=== PATIENT | male | born 1975 | race Two or more races ===

== ENCOUNTER 2018-08-12 10:52 | Inpatient (IN) | payer OTHER ==
[2018-08-12 11:25] LABS: ADD MAN DIFF? NO
[2018-08-12] MEDS: SOD CHLORIDE 0.9% 1,000 ML IV ×2 (11:27→17:59)
[2018-08-12] MEDS: DILTIAZEM 25 MG INJ IV (11:27)
[2018-08-12 11:28] LABS: WHITE BLOOD COUNT 5.8 10^3/ul (4.8-10.8)
[2018-08-12 11:28] LABS: BASOPHILS % 0.3 % (0.0-2.0); EOSINOPHILS # 0.1 10^3/ul (0.0-0.5); EOSINOPHILS % 1.9 % (0.0-7.0); HEMATOCRIT 42.2 % (42.0-52.0); HEMOGLOBIN 14.5 g/dl (14.0-18.0); LYMPHOCYTES # 1.9 10^3/ul (0.8-2.9); LYMPHOCYTES % 33.1 % (15.0-51.0); MEAN CORPUSCULAR HGB CONC 34.4 g/dl (32.0-37.0); MEAN CORPUSCULAR VOLUME 84.4 fl (82.0-101.0); MEAN PLATELET VOLUME 10.9 fl (7.4-10.4); MONOCYTE # 0.5 10^3/ul (0.3-0.9); MONOCYTES % 8.4 % (0.0-11.0); NEUTROPHIL # 3.2 10^3/ul (1.6-7.5); PLATELET COUNT 203 10^3/UL (140-415); RED CELL DISTRIBUTION WIDTH 13.1 % (11.5-14.5)
[2018-08-12 11:47] LABS: INR 1.03; PROTIME 13.6 Sec (11.9-14.9); PT RATIO 1.1
[2018-08-12 11:48] LABS: PARTIAL THROMBOPLASTIN TIME 25.8 Sec (23.0-35.0)
[2018-08-12 11:56] LABS: ANION GAP 14 (5-13); BLOOD UREA NITROGEN 25 mg/dl (7-20); CALCIUM 9.5 mg/dl (8.4-10.2); CARBON DIOXIDE 18 mmol/L (21-31); CHLORIDE 107 mmol/L (97-110); CREATININE 1.26 mg/dl (0.61-1.24); Estimated GFR > 60 mL/min (>60); GLUCOSE 193 mg/dl (70-220); POTASSIUM 3.9 mmol/L (3.5-5.1); SODIUM 139 mmol/L (135-144)
[2018-08-12 12:08] LABS: TROPONIN-I < 0.012 ng/ml (0.000-0.120)
[2018-08-12] MEDS: ENOXAPARIN 100 MG/ML SYG SC (12:52)
[2018-08-12] MEDS ORDERED: ONDANSETRON 4 MG INJ IV (16:00)
[2018-08-12] MEDS ORDERED: ACETAMINOPHEN 325 MG TAB PO (16:00)
[2018-08-12] MEDS ORDERED: NACL 0.9% 3 ML SYG IV (16:00)
[2018-08-12] MEDS ORDERED: HYDROCODONE/APAP (5/325) TAB PO (16:00)
[2018-08-12] MEDS ORDERED: morphine SULFATE/PF (2 MG/2 ML) SYG IV (16:00)
[2018-08-12] MEDS ORDERED: ZOLPIDEM 5 MG TAB PO (16:00)
[2018-08-12] MEDS ORDERED: DOCUSATE SODIUM 100 MG CAP PO (16:00)
[2018-08-12] MEDS: DILTIAZEM-D5W 125MG/125ML DRIP 125 ML IV (16:48)
[2018-08-13] MEDS: SOD CHLORIDE 0.9% 1,000 ML IV ×2 (01:45→11:45)
[2018-08-13] MEDS: DILTIAZEM-D5W 125MG/125ML DRIP 125 ML IV ×3 (03:30→19:36)
[2018-08-13 06:12] LABS: ADD MAN DIFF? NO
[2018-08-13 06:17] LABS: BASOPHILS % 0.4 % (0.0-2.0); EOSINOPHILS # 0.1 10^3/ul (0.0-0.5); EOSINOPHILS % 1.3 % (0.0-7.0); HEMATOCRIT 40.3 % (42.0-52.0); HEMOGLOBIN 13.5 g/dl (14.0-18.0); LYMPHOCYTES # 1.7 10^3/ul (0.8-2.9); LYMPHOCYTES % 21.8 % (15.0-51.0); MEAN CORPUSCULAR HEMOGLOBIN 29.2 pg (29.0-33.0); MEAN CORPUSCULAR HGB CONC 33.5 g/dl (32.0-37.0); MEAN CORPUSCULAR VOLUME 87.2 fl (82.0-101.0); MONOCYTE # 0.7 10^3/ul (0.3-0.9); MONOCYTES % 9.3 % (0.0-11.0); NEUTROPHIL # 5.1 10^3/ul (1.6-7.5); NEUTROPHILS % 66.9 % (39.0-77.0); PLATELET COUNT 210 10^3/UL (140-415); RED BLOOD COUNT 4.62 10^6/ul (4.70-6.10); RED CELL DISTRIBUTION WIDTH 13.2 % (11.5-14.5)
[2018-08-13 06:17] LABS: WHITE BLOOD COUNT 7.6 10^3/ul (4.8-10.8)
[2018-08-13 06:32] LABS: HEMOGLOBIN A1C 5.3 % (0-5.9)
[2018-08-13 06:46] LABS: ANION GAP 12 (5-13); BLOOD UREA NITROGEN 18 mg/dl (7-20); CALCIUM 9.1 mg/dl (8.4-10.2); CARBON DIOXIDE 20 mmol/L (21-31); CHLORIDE 105 mmol/L (97-110); CREATININE 1.05 mg/dl (0.61-1.24); Estimated GFR > 60 mL/min (>60); GLUCOSE 91 mg/dl (70-220); MAGNESIUM 1.8 mg/dl (1.7-2.5); PHOSPHORUS 3.7 mg/dl (2.5-4.9); POTASSIUM 4.4 mmol/L (3.5-5.1); SODIUM 137 mmol/L (135-144)
[2018-08-13 07:03] LABS: FREE THYROXINE INDEX (Calc) 2.26 ug/ml (0.65-3.89); T3 UPTAKE 37.6 % (23.5-40.5)
[2018-08-13] MEDS: METOPROLOL (XL) 100 MG TAB PO (08:17)
[2018-08-13] MEDS: INFLUENZA VIRUS VACCINE 0.5 ML (DISPENSING) IM* (11:12)
[2018-08-13] MEDS: DIGOXIN 0.25 MG TAB PO (12:56)
[2018-08-13] MEDS: DIGOXIN 500 MCG INJ IV (14:26)
[2018-08-13 19:46] LABS: TROPONIN-I < 0.012 ng/ml (0.000-0.120)
[2018-08-13 20:50] LABS: B-TYPE NATRIURETIC PEPTIDE 1940 PG/ML (0-125)
[2018-08-13] MEDS: METOPROLOL 5 MG INJ IV (23:29)
[2018-08-14 01:35] LABS: TROPONIN-I < 0.012 ng/ml (0.000-0.120)
[2018-08-14 06:34] LABS: ANION GAP 9 (5-13); BLOOD UREA NITROGEN 13 mg/dl (7-20); CALCIUM 9.6 mg/dl (8.4-10.2); CARBON DIOXIDE 25 mmol/L (21-31); CHLORIDE 105 mmol/L (97-110); CREATININE 1.17 mg/dl (0.61-1.24); Estimated GFR > 60 mL/min (>60); GLUCOSE 95 mg/dl (70-220); POTASSIUM 4.5 mmol/L (3.5-5.1); SODIUM 139 mmol/L (135-144)
[2018-08-14 07:34] LABS: AMPHETAMINE/METHAMPHETAMINE Negative (NEGATIVE); BARBITURATES Negative (NEGATIVE); BENZODIAZEPINES Negative (NEGATIVE); CANNABINOIDS Negative (NEGATIVE); COCAINE Negative (NEGATIVE); OPIATES Negative (NEGATIVE)
[2018-08-14] MEDS: ASPIRIN 325 MG TAB PO (08:45)
[2018-08-14] MEDS: LISINOPRIL 5 MG TAB PO (08:46)
[2018-08-14] MEDS: METOPROLOL (XL) 100 MG TAB PO (08:46)
[2018-08-14] MEDS: METOPROLOL 5 MG INJ IV (09:30)
[2018-08-14] MEDS: DIGOXIN 0.25 MG TAB PO (12:35)
[2018-08-14] MEDS: DIGOXIN 500 MCG INJ IV ×2 (16:27→22:06)
[2018-08-15] MEDS: SPIRONOLACTONE 25 MG TAB PO (08:13)
[2018-08-15] MEDS: ASPIRIN 325 MG TAB PO (08:13)
[2018-08-15] MEDS: METOPROLOL (XL) 100 MG TAB PO (08:14)
[2018-08-15] MEDS: LISINOPRIL 5 MG TAB PO (08:14)
== END 2018-08-15 11:38 | disposition home or self-care (01) | DRG 309 ==
LOC: E/R 10:52 → TEL 13:05
PROVIDERS: Internal Medicine
DX: I48.2 Chronic atrial fibrillation (principal); N17.9 Acute kidney failure, unspecified; I42.9 Cardiomyopathy, unspecified; I12.9 Hypertensive chronic kidney disease with stage 1 through stage 4 chronic kidney disease, or unspecified chronic kidney disease; N18.9 Chronic kidney disease, unspecified; E86.0 Dehydration
CPT/HCPCS: 36415; 71045; 80048; 80307; 82962; 83036; 83735; 83880; 84100; 84436; 84479; 84484; 85025; 85610; 85730; 90686; 93005; 93306; 93880; 96372; 96374; 99285-25; G0378